=== PATIENT | female | born 1975 | race American Indian/Alaskan Native ===

== ENCOUNTER 2016-11-28 12:11 | Emergency (ER) | payer OTHER ==
[2016-11-28 12:57] LABS: Bilirubin,Urine NEG (Negative); Blood,Urine LG (Negative); Ketones,Urine NEG (Negative); Leukocyte Esterase,Urine NEG (Negative); Mucus,Urine FEW /HPF; Nitrite,Urine NEG (Negative); Protein,Urine <15 mg/dL mg/dL (Negative); Urobilinogen,Urine < 2.0 mg/dL (<2.0)
[2016-11-28 12:58] LABS: WBC,Urine < 1.0 /HPF (0.0-6.0)
[2016-11-28] MEDS ORDERED: ATROVENT IH ONE (14:01)
[2016-11-28] MEDS ORDERED: XOPENEX IH ONE (14:01)
--- NOTE | 2016-11-28 14:13 | Emergency Department Report ---
HPI - General Chief Complaint: High BP Time Seen by Provider: 11/28/16 13:36 - HPI HPI: Room 24 The patient is a 40-year-old female presenting with a chief complaint of hypertension. Patient states for 1 week she was "weak all over" exhibited fatigue and nausea without vomiting. Patient admits to mild intermittent headache for the past 2-3 days. Patient denies any history of fever. Patient also complains of chest congestion and cough for several months. The patient went to the urgent care facility today secondary to her fatigue one week was found to be hypertensive at 230/150. Patient was administered clonidine 0.2 mg and transported to the ED for further evaluation Location: [see above] Duration: [see above] Quality: Fatigue Severity: Moderate Modifying factors: [see above] Context: [see above] Mode of transportation: [not driving] ED Past Medical Hx - Past Medical History Previous Medical History?: No - Surgical History Past Surgical History?: No - Family History Family history: no significant - Social History Smoking Status: Current Every Day Smoker Substance Use Type: Alcohol - Medications Home Medications: Home Medications Medication Instructions Recorded Confirmed Last Taken Type Naproxen [Naprosyn TAB] 500 mg PO Q12HR PRN 11/28/16 11/28/16 Unknown History amLODIPine [Norvasc] 5 mg PO DAILY #90 tab 11/28/16 Unknown Rx ED Review of Systems ROS: Stated complaint: FEELING SICK/WEAK Other details as noted in HPI Comment: All other systems reviewed and negative Constitutional: malaise Eyes: denies: eye pain, eye discharge, vision change ENT: denies: ear pain, throat pain Respiratory: denies: cough, shortness of breath, wheezing Cardiovascular: denies: chest pain, palpitations Endocrine: no symptoms reported Gastrointestinal: denies: abdominal pain, nausea, diarrhea Genitourinary: denies: urgency, dysuria, discharge Musculoskeletal: denies: back pain, joint swelling, arthralgia Skin: denies: rash, lesions Neurological: headache. denies: weakness, paresthesias Psychiatric: denies: anxiety, depression Hematological/Lymphatic: denies: easy bleeding, easy bruising Physical Exam - Physical Exam Vital Signs: Vital Signs 11/28/16 11/28/16 11/28/16 12:30 12:33 12:35 Temperature 98.5 F 98.4 F Pulse Rate 80 81 73 Respiratory 18 12 Rate Blood Pressure 220/100 Blood Pressure 174/101 [Right] O2 Sat by Pulse 99 98 Oximetry 11/28/16 11/28/16 12:45 12:54 Temperature Pulse Rate 79 Respiratory 14 12 Rate Blood Pressure 174/101 Blood Pressure [Right] O2 Sat by Pulse 98 98 Oximetry Physical Exam: GENERAL: The patient is well-developed well-nourished female lying on stretcher not appearing to be in acute distress. [] HEENT: Normocephalic. Atraumatic. Extraocular motions are intact. Patient has moist mucous membranes. NECK: Supple. Trachea midline CHEST/LUNGS: Clear to auscultation. There is no respiratory distress noted. HEART/CARDIOVASCULAR: Regular. There is no tachycardia. There is no gallop rub or murmur. ABDOMEN: Abdomen is soft, nontender. Patient has normal bowel sounds. There is no abdominal distention. SKIN: There is no rash. There is no edema. There is no diaphoresis. NEURO: The patient is awake, alert, and oriented. The patient is cooperative. The patient has no focal neurologic deficits. The patient has normal speech. Cranial nerves II through XII grossly intact, no drift MUSCULOSKELETAL: There is no evidence of acute injury. ED Course Vital Signs 11/28/16 11/28/16 11/28/16 12:30 12:33 12:35 Temperature 98.5 F 98.4 F Pulse Rate 80 81 73 Respiratory 18 12 Rate Blood Pressure 220/100 Blood Pressure 174/101 [Right] O2 Sat by Pulse 99 98 Oximetry 11/28/16 11/28/16 12:45 12:54 Temperature Pulse Rate 79 Respiratory 14 12 Rate Blood Pressure 174/101 Blood Pressure [Right] O2 Sat by Pulse 98 98 Oximetry ED Medical Decision Making - Lab Data Result diagrams: 11/28/16 13:34 11/28/16 13:34 Laboratory Tests 11/28/16 11/28/16 11/28/16 13:34 13:34 13:34 WBC 7.7 RBC 5.18 H Hgb 11.0 Hct 37.0 MCV 72 L MCH 21 L MCHC 30 RDW 19.5 H Plt Count 223 Lymph % (Auto) 23.0 [place] % (Auto) 5.2 Eos % (Auto) 1.4 Baso % (Auto) 0.8 Lymph # 1.8 Bradford # 0.4 Eos # 0.1 Baso # 0.1 Seg Neutrophils % 69.6 Seg Neutrophils # 5.4 Sodium 133 L Potassium 3.8 Chloride 99.4 Carbon Dioxide 22 Anion Gap 15 BUN 9 Creatinine 0.3 L Estimated GFR > 60 BUN/Creatinine Ratio 30.00 Glucose 94 Calcium 8.6 Total Creatine Kinase 115 Urine Color Urine Turbidity Urine pH Ur Specific [place] Urine Protein Urine Glucose (UA) Urine Ketones Urine Blood Urine Nitrite Urine Bilirubin Urine Urobilinogen Ur Leukocyte Esterase Urine WBC (Auto) Urine RBC (Auto) U Epithel Cells (Auto) Amorphous Crystals Urine Mucus Urine HCG, Qual 11/28/16 11/28/16 Unknown Unknown WBC RBC Hgb Hct MCV MCH MCHC RDW Plt Count Lymph % (Auto) [place] % (Auto) Eos % (Auto) Baso % (Auto) Lymph # [place] # Eos # Baso # Seg Neutrophils % Seg Neutrophils # Sodium Potassium Chloride Carbon Dioxide Anion Gap BUN Creatinine Estimated GFR BUN/Creatinine Ratio Glucose Calcium Total Creatine Kinase Urine Color Yellow Urine Turbidity Slightly-cloudy Urine pH 8.0 H Ur Specific [place] 1.010 Urine Protein <15 mg/dl Urine Glucose (UA) Neg Urine Ketones Neg Urine Blood Lg Urine Nitrite Neg Urine Bilirubin Neg Urine Urobilinogen < 2.0 Ur Leukocyte Esterase Neg Urine WBC (Auto) < 1.0 Urine RBC (Auto) 1.0 U Epithel Cells (Auto) < 1.0 Amorphous Crystals Few Urine Mucus Few Urine HCG, Qual Negative - EKG Data -: EKG Interpreted by Me EKG shows normal: sinus rhythm Rate: normal - EKG Data When compared to previous EKG there are: previous EKG unavailable Interpretation: nonspecific ST-T wave pepe (T-wave inversion in lead aVL) - Radiology Data Radiology results: report reviewed (CT head), image reviewed (chest x-ray, CT head) interpreted by me: Chest x-ray-no focal infiltrates, no pneumothorax CT head (read by radiologist)-no acute CVA, intracranial bleed or brain mass - Differential Diagnosis hypertensive urgency, uncontrolled hypertension Critical care attestation.: If time is entered above; I have spent that time in minutes in the direct care of this critically ill patient, excluding procedure time. ED Disposition Clinical Impression: Hypertension Disposition: DISCHARGED TO HOME OR SELFCARE Is pt being admited?: No Does the pt Need Aspirin: No Condition: Stable Instructions: How to Stop Smoking (ED), Hypertension (ED) Additional Instructions: Return to the emergency department immediately should you develop worsening symptoms, fever, inability to tolerate food or liquid or any other concerns. Prescriptions: amLODIPine [Norvasc] 5 mg PO DAILY #90 tab Referrals: PRIMARY CARE, [Primary Care Provider] - 3-5 Days SONA COOPER MD [Staff Physician] - [facility] (Dr. Cooper is a primary physician. Please follow up with him for further evaluation/management of your hypertension) Time of Disposition: 17:35
[2016-11-28 14:18] LABS: Anion Gap 15 mmol/L; Blood Urea Nitrogen 9 mg/dL (7-17); Calcium 8.6 mg/dL (8.4-10.2); Carbon Dioxide 22 mmol/L (22-30); Chloride 99.4 mmol/L (98-107); Glucose 94 mg/dL (65-100); Potassium 3.8 mmol/L (3.6-5.0); Sodium 133 mmol/L (137-145)
[2016-11-28 14:19] LABS: Basophils % (Auto) 0.8 % (0.0-1.8); Eosinophils % (Auto) 1.4 % (0.0-4.3); Mean Corpuscular HGB Conc 30 % (30-34); Mean Corpuscular Volume 72 fl (79-97); Platelet Count 223 K/mm3 (140-440); Red Blood Count 5.18 M/mm3 (3.65-5.03); Red Cell Distribution Width 19.5 % (13.2-15.2); White Blood Count 7.7 K/mm3 (4.5-11.0)
[2016-11-28 14:27] LABS: Mean Corpuscular Hemoglobin 21 pg (28-32)
--- NOTE | 2016-11-28 15:01 | XRay Report ---
Single view chest: History: Cough and congestion. Findings: Borderline cardiomegaly. Trachea is midline. No consolidation, pneumothorax or pleural effusion. Impression: No acute cardiopulmonary findings.
--- NOTE | 2016-11-28 17:02 | Cat Scan Report ---
FINAL REPORT EXAM: CT HEAD/BRAIN WO CON HISTORY: hypertension, headache TECHNIQUE: CT examination of the head without IV contrast PRIORS: None. FINDINGS: No acute air-fluid level visualized in the included air-filled sinuses. Bone windows demonstrate no fracture. The brain is without mass, mass effect, hemorrhage, or acute infarct. There is no extra-axial intracranial bleed, brain bleed, or midline shift. The ventricles and sulci are age-appropriate. IMPRESSION: No acute CVA, intracranial bleed, or brain mass
[2016-11-28 18:12] VITALS: BP 132/82
== END 2016-11-28 18:12 | disposition home or self-care (01) ==
LOC: ED 12:11
DX: I10 Essential (primary) hypertension (principal); F17.200 Nicotine dependence, unspecified, uncomplicated
CPT/HCPCS: 36415; 70450; 71010; 80048; 81001; 81025; 82550; 85025; 93005; 93010; 94640